=== PATIENT | female | born 1940 | race Caucasian/White ===

== ENCOUNTER → 2017-04-07 | Outpatient (CLI) | payer MEDICARE, OTHER | LOC: MC.RAD 10:18 | DX: Z12.31 Encounter for screening mammogram for malignant neoplasm of breast (principal) ==

== ENCOUNTER 2017-12-03 11:00 | Outpatient (RCR) | payer MEDICARE, OTHER | END 2017-12-03 14:45 | disposition home or self-care (01) | LOC: WSOT 11:00 | DX: M25.532 Pain in left wrist (principal) | CPT/HCPCS: G8987-GO; G8988-GO; G8989-GO ==

== ENCOUNTER → 2018-01-14 | Outpatient (CLI) | payer MEDICARE, OTHER ==
[2007-06-30 06:35] VITALS: BP 108/56
[~2018-01-14] VITALS: Ht 165.1 cm; Wt 82.1 kg
[~2018-01-14] MED LIST: ASPIRIN E.C. 8181 MG PO; CRESTOR 10MG10 MG PO; DETROL LA4 PO; MULTI VITAMINS1 TAB PO; PREMARIN VAG42.5 GM VG; STOOL SOFTENER100 M2 PO; ULTRAM 50MG TAB50 MG PO; VITAMIN D 1001000 IU PO
[2018-01-14 06:35] VITALS: BP 164/88; PULSE 69
[2018-01-14 07:48] VITALS: BP 178/83; PULSE 68
== END ==
LOC: COL.RAD 06:11
DX: M54.41 Lumbago with sciatica, right side (principal)
CPT/HCPCS: J3301

== ENCOUNTER → 2018-01-28 | Outpatient (CLI) | payer MEDICARE, OTHER ==
[2007-06-30 06:35] VITALS: BP 108/56
[~2018-01-28] VITALS: Ht 165.1 cm; Wt 78.4 kg
[2018-01-28 13:16] VITALS: BP 144/70; PULSE 75
== END ==
LOC: COL.RAD 12:55
DX: M54.41 Lumbago with sciatica, right side (principal); M51.26 Other intervertebral disc displacement, lumbar region
CPT/HCPCS: J3301

== ENCOUNTER → 2018-04-13 | Outpatient (CLI) | payer MEDICARE, OTHER | LOC: MC.RAD 11:35 | DX: Z12.31 Encounter for screening mammogram for malignant neoplasm of breast (principal) ==

== ENCOUNTER → 2018-05-18 | Outpatient (CLI) | payer MEDICARE, OTHER ==
[2007-06-30 06:35] VITALS: BP 108/56
[~2018-05-18] VITALS: Ht 165.1 cm; Wt 78.5 kg
[2018-05-18 11:51] VITALS: BP 168/81; PULSE 68
[2018-05-18 13:40] VITALS: BP 171/83; PULSE 67
== END ==
LOC: COL.RAD 11:43
DX: M54.41 Lumbago with sciatica, right side (principal); M51.26 Other intervertebral disc displacement, lumbar region; N28.1 Cyst of kidney, acquired; M61.48 Other calcification of muscle, other site
CPT/HCPCS: J3301

== ENCOUNTER → 2018-06-24 | Outpatient (CLI) | payer MEDICARE, OTHER | LOC: COL.RAD 10:39 | DX: N28.1 Cyst of kidney, acquired (principal); M47.816 Spondylosis without myelopathy or radiculopathy, lumbar region; K76.9 Liver disease, unspecified; Z90.710 Acquired absence of both cervix and uterus | CPT/HCPCS: Q9967 ==

== ENCOUNTER → 2018-07-09 | Outpatient (CLI) | payer MEDICARE, OTHER ==
[2007-06-30 06:35] VITALS: BP 108/56
[~2018-07-09] VITALS: Ht 165.1 cm; Wt 78.8 kg
[2018-07-09 12:08] VITALS: BP 155/73; PULSE 67
[2018-07-09 13:20] VITALS: BP 146/65; PULSE 65
[2018-07-09 13:30] VITALS: BP 144/75; PULSE 64
[2018-07-09 13:40] VITALS: BP 158/65; PULSE 68
== END ==
LOC: COL.RAD 11:47
DX: N28.1 Cyst of kidney, acquired (principal)

== ENCOUNTER → 2019-04-27 | Outpatient (CLI) | payer MEDICARE, OTHER | LOC: MC.RAD 11:37 | DX: Z12.31 Encounter for screening mammogram for malignant neoplasm of breast (principal) ==

== ENCOUNTER → 2019-06-29 | Outpatient (CLI) | payer MEDICARE, OTHER | LOC: COL.RAD 08:12 | DX: N28.1 Cyst of kidney, acquired (principal) ==

== ENCOUNTER → 2019-12-31 | Outpatient (CLI) | payer MEDICARE, OTHER | LOC: MC.RAD 09:26 | DX: N64.4 Mastodynia (principal) | CPT/HCPCS: G0279 ==

== ENCOUNTER → 2020-06-23 | Outpatient (CLI) | payer MEDICARE, OTHER | LOC: COL.RAD 12:53 | DX: N28.1 Cyst of kidney, acquired (principal) ==

== ENCOUNTER 2021-05-19 09:00 | Emergency (ER) | payer MEDICARE, OTHER ==
[~2021-05-19] VITALS: Ht 167.6 cm; Wt 79.5 kg
[2021-05-19 09:09] VITALS: TEMP 97.9
[2021-05-19 09:22] LABS: BASO % 0.3 % (0.0-2.0); EOS # 0.1 (0.0-0.7); EOS % 0.9 % (0-4.0); GRAN # 6.7 (1.4-6.5); GRAN % 77.4 % (42.2-75.2); HEMATOCRIT 44.5 % (37.0-47.0); HEMOGLOBIN 14.2 g/dl (12.5-16.0); LYMPH # 1.3 (1.2-3.4); MEAN CELL VOLUME 96 fl (80.0-100.0); MEAN CORPUSCULAR HEMOGLOBIN 31 pg (27.0-31.0); MEAN CORPUSCULAR HGB CONC 32 g/dl (33.0-37.0); MEAN PLATELET VOLUME 9.6 fl (7.4-10.4); MONO # 0.5 (0.1-0.6); MONO % 6.2 % (1.7-9.3); PLATELET COUNT 152 K/mm3 (130-400); RED BLOOD COUNT 4.65 M/mm3 (4.10-5.30)
[2021-05-19 09:33] LABS: BILIRUBIN,TOTAL 0.5 mg/dL (0.0-1.0); CALCIUM 9.6 mg/dL (8.4-10.2); CREATININE, serum 0.75 (0.52-1.25)
[2021-05-19 09:45] LABS: TROPONIN-I 1.12 ng/mL (0.000-0.035)
[2021-05-19 15:20] LABS: PARTIAL THROMBOPLASTIN TIME 176.2 SECONDS (26.0-37.0)
[2021-05-19 21:45] VITALS: BP 150/80; PULSE 80
== END 2021-05-19 21:45 | disposition short-term general hospital (02) ==
LOC: COL.ER 09:00
PROVIDERS: Personal Emergency Response Attendant; Physician Assistant
DX: I21.4 Non-ST elevation (NSTEMI) myocardial infarction (principal); Z87.891 Personal history of nicotine dependence; Z79.82 Long term (current) use of aspirin; Z20.822 Contact with and (suspected) exposure to COVID-19
CPT/HCPCS: J1644; J2270; J2405; Q9967

== ENCOUNTER → 2021-05-31 | Outpatient (CLI) | payer MEDICARE, OTHER | LOC: MC.RAD 09:07 | DX: Z12.31 Encounter for screening mammogram for malignant neoplasm of breast (principal) ==

== ENCOUNTER 2022-05-14 13:25 | Outpatient (RCR) | payer MEDICARE, OTHER | END 2022-05-19 | disposition home or self-care (01) | LOC: WSPT | DX: M54.31 Sciatica, right side (principal) ==

== ENCOUNTER → 2022-06-19 | Outpatient (RCR) | payer MEDICARE, OTHER | END | disposition home or self-care (01) | LOC: WSPT | DX: M79.604 Pain in right leg (principal); M54.31 Sciatica, right side ==

== ENCOUNTER → 2022-06-21 | Outpatient (CLI) | payer MEDICARE, OTHER | LOC: MHCPAIN 10:40 | DX: M79.2 Neuralgia and neuritis, unspecified (principal); M51.16 Intervertebral disc disorders with radiculopathy, lumbar region; M53.3 Sacrococcygeal disorders, not elsewhere classified | CPT/HCPCS: G0463 ==

== ENCOUNTER → 2022-06-28 | Outpatient (CLI) | payer MEDICARE, OTHER | LOC: MHCPAIN 10:08 | DX: M51.16 Intervertebral disc disorders with radiculopathy, lumbar region (principal); M47.817 Spondylosis without myelopathy or radiculopathy, lumbosacral region; M54.59 Other low back pain; M53.3 Sacrococcygeal disorders, not elsewhere classified | CPT/HCPCS: J1100; Q9967 ==

== ENCOUNTER → 2022-07-09 | Outpatient (CLI) | payer MEDICARE, OTHER | LOC: MHCPAIN 13:44 | DX: M54.31 Sciatica, right side (principal); M79.18 Myalgia, other site | CPT/HCPCS: G0463; J3301 ==

== ENCOUNTER → 2024-01-20 | Outpatient (CLI) | payer MEDICARE, OTHER | LOC: MHCPAIN 14:56 | DX: M65.311 Trigger thumb, right thumb (principal); M65.312 Trigger thumb, left thumb | CPT/HCPCS: G0463 ==

== ENCOUNTER → 2024-08-16 | Outpatient (CLI) | payer MEDICARE, OTHER | LOC: COL.RAD 08:52 | DX: N28.1 Cyst of kidney, acquired (principal); R93.422 Abnormal radiologic findings on diagnostic imaging of left kidney ==